=== PATIENT | male | born 1975 | race Caucasian/White ===

== ENCOUNTER → 2024-03-31 13:47 | Outpatient (CLI) | payer OTHER, SELFPAY ==
--- NOTE | 2024-03-31 13:49 | DI.ECHO.S_ITS ---
[facility]---------+ [facility] : : [address] : : [place] : : [id number] : : Phone: [phone] Echocardiogram Report + + :Name: GERARD ODONNELL Study Date: 03/31/2024 Height: 72 in : :Hospital ReadingLocation: Weight: 220 lb : : Gender: Male BSA: 2.2 m2 : :: 1975 Age: 48 yrs BP: 178/108 mmHg: :Reason For Study: ATRIAL FIBRILLATION : :Ordering Physician: KYLER, : :ADELA Jackson Performed By: Vidhi Campos : :Referring: ADELA COLON : + + Interpretation Summary The ejection fraction is estimated to be 20-25%. Diastolic function could not be accurately assessed due to atrial fibrillation. The left atrium is mildly dilated. The right ventricle is borderline dilated. The right ventricular systolic function is normal. There is mild mitral regurgitation. Pulmonary artery pressures cannot be estimated because of the lack of a measurable TR jet velocity but the IVC suggests a CVP of around 8 mmHg. The ascending aorta is mildly enlarged. Procedure: A two-dimensional transthoracic echocardiogram with color flow and Doppler was performed. The study quality was technically adequate. There is no prior echocardiogram noted for this patient. The patient was in atrial fibrillation with heart rates between 98-117 bpm during the exam. Left Ventricle: The left ventricle is normal in size and wall thickness. A false chord is noted (normal variant). The ejection fraction is estimated to be 20-25%. Diastolic function could not be accurately assessed due to atrial fibrillation. Right Ventricle: The right ventricle is borderline dilated. The right ventricular systolic function is normal. Atria: The left atrium is mildly dilated. Right atrial size is normal. There is no Doppler evidence for an interatrial shunt. Mitral Valve: The mitral valve leaflets appear mildly thickened, but open well. There is mild mitral regurgitation. Aortic Valve: The aortic valve is trileaflet. The aortic valve opens well. There is no aortic valve stenosis. No aortic regurgitation is present. Tricuspid Valve: The tricuspid valve is normal in structure and function. There is trace tricuspid regurgitation. Pulmonary artery pressures cannot be estimated because of the lack of a measurable TR jet velocity but the IVC suggests a CVP of around 8 mmHg. Pulmonic Valve: The pulmonic valve leaflets are thin and pliable; valve motion is normal. There is no pulmonic valvular regurgitation. Great Vessels: The aortic root is normal size. The ascending aorta is mildly enlarged. The IVC is dilated (diameter is greater than 2.1 cm) yet it collapses greater than 50% with a sniff. This suggests a right atrial pressure of 8 mm Hg. Pericardium/ Pleura There is no pericardial effusion. There is no pleural effusion. MMode/2D Measurements & Calculations LVIDd: 5.7 cm LVOT diam: 2.1 cm LVIDs: 5.1 cm Ao root diam: 3.6 cm FS: 10.2 % asc Aorta Diam: 4.0 cm EPSS: 2.1 cm Ao Arch Diam (Prox Trans): 3.0 cm IVSd: 0.99 cm LVPWd: 0.95 cm LV vergara. diameter/BSA (cm/m^2): 2.6 LV sys. diameter/BSA (cm/m^2): 2.3 LA A2 area: 28.6 cm2 RA long axis: 5.7 cm LA A4 area: 25.9 cm2 RA area: 18.4 cm2 LA length (vol): 6.5 cm RA vol: 50.9 ml LA vol: 96.4 ml RA : 22.9 ml/m2 LA vol index: 43.4 ml/m2 IVC diam: 2.5 cm RVD1 (basal): 4.2 cm RVD2 (mid): 3.0 cm TAPSE: 1.7 cm Doppler Measurements & Calculations Ao V2 max: 132.1 cm/sec LVOT Max Mohsen: 72.4 cm/sec Ao V2 mean: 91.9 cm/sec LV V1 max P.1 mmHg Ao max P.0 mmHg LV V1 VTI: 11.7 cm Ao mean P.8 mmHg MARLENE(I,D): 1.9 cm2 Ao V2 VTI: 22.3 cm MARLENE(V,D): 2.0 cm2 sev ratio: 0.52 MARLENE indexed to BSA (cm^2/m^2): 0.85 MV E max mohsen: 91.7 cm/sec PA V2 max: 81.7 cm/sec MV A max mohsen: 0.86 cm/sec PA V2 mean: 61.4 cm/sec MV E/A: 106.0 PA mean P.6 mmHg Med Peak E' Mohsen: 6.7 cm/sec PA pr(Accel): 43.0 mmHg E/E' med: 13.7 Lat Peak E' Mohsen: 11.1 cm/sec E/E' lat: 8.2 E/e' average: 11.0 MV dec time: 0.20 sec [facility] 42.2 [facility] Reading Physician:05:07 PM
== END ==
PROVIDERS: Referring Provider Internal Medicine Cardiovascular Disease; Visit Provider Internal Medicine Cardiovascular Disease
DX: I34.0 Nonrheumatic mitral (valve) insufficiency (principal); I48.91 Unspecified atrial fibrillation; I77.89 Other specified disorders of arteries and arterioles
CPT/HCPCS: 93306

== ENCOUNTER → 2024-09-29 13:42 | Outpatient (CLI) | payer OTHER, SELFPAY ==
--- NOTE | 2024-09-29 13:44 | DI.ECHO.S_ITS ---
[facility] +---------+ Hospital : : [address] : : [place] : : [id number] : : Phone: [phone] Echocardiogram Report + + :Name: GERARD ODONNELL Study Date: 09/29/2024 Height: 72 in : :Hospital ReadingLocation: Weight: 215 lb : : Gender: Male BSA: 2.2 m2 : :: 1975 Age: 48 yrs BP: 155/115 mmHg: :Reason For Study: CHRONIC SYSTOLIC HEART FAILURE : :Ordering Physician: KYLER, : :ADELA Jackson Performed By: Vidhi Campos : :Referring: ADELA COLON : + + Interpretation Summary Patient was very anxious for exam. The patient was in atrial fibrillation with heart rates between 86-108 bpm during the exam. The ejection fraction is estimated to be 40-45%. Diastolic function could not be accurately assessed due to atrial fibrillation. The right ventricle is normal in size and function. No significant valvular abnormalities. Pulmonary artery pressures cannot be estimated because of the lack of a measurable TR jet velocity but the IVC suggests a CVP of around 3 mmHg. The ascending aorta is mildly enlarged. Compared to the prior study 03/31/2024, the ejection fraction has increased. Procedure: A two-dimensional transthoracic echocardiogram with color flow and Doppler was performed. The study quality was technically adequate. Comparison is made with the echocardiogram of 03/31/2024. The patient was in atrial fibrillation with heart rates between 86-108 bpm during the exam. Left Ventricle: The left ventricle is normal in size. There is normal left ventricular wall thickness. The ejection fraction is estimated to be 40-45%. Diastolic function could not be accurately assessed due to atrial fibrillation. Right Ventricle: The right ventricle is normal in size and function. Atria: The left atrial size is normal. Right atrial size is normal. There is no Doppler evidence for an interatrial shunt. Mitral Valve: The mitral valve leaflets appear normal. There is no evidence of stenosis, fluttering, or prolapse. There is trace mitral regurgitation. Aortic Valve: The aortic valve is trileaflet. The aortic valve opens well. There is no aortic valve stenosis. No aortic regurgitation is present. Tricuspid Valve: The tricuspid valve leaflets are thin and pliable. No tricuspid regurgitation. Pulmonary artery pressures cannot be estimated because of the lack of a measurable TR jet velocity but the IVC suggests a CVP of around 3 mmHg. Pulmonic Valve: The pulmonic valve leaflets are thin and pliable; valve motion is normal. There is no pulmonic valvular regurgitation. Great Vessels: The aortic root is normal size. The ascending aorta is mildly enlarged. The IVC is of normal diameter and collapses greater than 50% with a sniff. This suggests a low right atrial pressure of 3 mm Hg. Pericardium/ Pleura There is no pericardial effusion. There is no pleural effusion. MMode/2D Measurements & Calculations LVIDd: 5.4 cm LVOT diam: 2.4 cm LVIDs: 4.6 cm Ao root diam: 3.5 cm FS: 15.4 % asc Aorta Diam: 3.9 cm EPSS: 1.1 cm Ao Arch Diam (Prox Trans): 3.0 cm IVSd: 0.95 cm LVPWd: 0.97 cm LV vergara. diameter/BSA (cm/m^2): 2.5 LV sys. diameter/BSA (cm/m^2): 2.1 LA A2 area: 14.8 cm2 RA long axis: 5.1 cm LA A4 area: 20.4 cm2 RA area: 15.8 cm2 LA length (vol): 6.5 cm RA vol: 41.4 ml LA vol: 39.7 ml RA : 18.8 ml/m2 LA vol index: 18.1 ml/m2 IVC diam: 1.4 cm RVD1 (basal): 3.0 cm RVD2 (mid): 2.6 cm TAPSE: 1.6 cm Doppler Measurements & Calculations Ao V2 max: 105.5 cm/sec LVOT Max Mohsen: 72.1 cm/sec Ao V2 mean: 82.3 cm/sec LV V1 max P.1 mmHg Ao max P.5 mmHg LV V1 VTI: 12.3 cm Ao mean P.9 mmHg MARLENE(I,D): 2.9 cm2 Ao V2 VTI: 19.2 cm MARLENE(V,D): 3.1 cm2 sev ratio: 0.64 MARLENE indexed to BSA (cm^2/m^2): 1.3 MV E max mohsen: 61.9 cm/sec PA V2 max: 99.9 cm/sec MV A max mohsen: 0.50 cm/sec PA V2 mean: 66.1 cm/sec MV E/A: 124.4 PA mean P.9 mmHg Med Peak E' Mohsen: 10.2 cm/sec PA pr(Accel): 36.2 mmHg E/E' med: 6.1 Lat Peak E' Mohsen: 15.4 cm/sec E/E' lat: 4.0 E/e' average: 5.1 MV dec time: 0.22 sec SV(OT): 56.2 ml Reading Physician:04:42 PM
== END ==
LOC: ECHO 13:42
PROVIDERS: Referring Provider Internal Medicine Cardiovascular Disease; Visit Provider Internal Medicine Cardiovascular Disease
DX: I50.22 Chronic systolic (congestive) heart failure (principal); I77.89 Other specified disorders of arteries and arterioles
CPT/HCPCS: 93306